=== PATIENT | female | born 1980 | race Caucasian/White ===

== ENCOUNTER 2024-01-25 09:00 | Outpatient (RCR) | payer MEDICAID, SELFPAY | END 2024-03-28 12:50 | disposition home or self-care (01) | LOC: HO.PT 09:00 | PROVIDERS: PCP Internal Medicine; Visit Provider Surgery Vascular Surgery | DX: Z47.81 Encounter for orthopedic aftercare following surgical amputation (principal); Z89.511 Acquired absence of right leg below knee | CPT/HCPCS: 97110; 97112; 97116; 97140; 97162; 97530 ==